=== PATIENT | female | born 1985 | race Caucasian/White ===

== ENCOUNTER 2016-05-15 15:26 | Emergency (ER) | payer MEDICAID ==
[~2016-05-15] VITALS: Wt 70.0 kg
[2016-05-15] MEDS ORDERED: IBUP-1542 PO (16:27)
--- NOTE | 2016-05-15 16:29 | ERD ---
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 She denies restricted range of motion or weakness. Her tetanus is not up-to-date. ROS All systems reviewed and are negative except as per history of present illness. Medications Home Meds Active Scripts Ibuprofen* (Motrin*) 600 Mg Tab, 600 MG PO Q6, #15 TAB Prov:WAYNE BHAKTA MD 05/15/16 Reported Medications [None] No Conflict Check 10/12/12 Allergies Allergies: Coded Allergies: No Known Allergy (Verified , 10/12/12) PMhx/Soc Medical and Surgical Hx: pt denies Medical Hx, pt denies Surgical Hx History of Surgery: No Anesthesia Reaction: No Hx Neurological Disorder: No Hx Respiratory Disorders: No Hx Cardiac Disorders: No Hx Psychiatric Problems: No Hx Miscellaneous Medical Probl: No Hx Alcohol Use: No Hx Substance Use: No Hx Tobacco Use: No Smoking Status: Never smoker Physical Exam Vitals Vital Signs Date Time Temp Pulse Resp B/P Pulse Ox O2 Delivery O2 Flow Rate FiO2 05/15/16 15:31 98.5 68 20 125/74 100 Physical Exam Const: [] Alert, [id number]. Head: Atraumatic Eyes: Normal Conjunctiva ENT: Normal External Ears, Nose and Mouth. Neck: Full range of motion..~ No meningismus. Resp: Clear to auscultation bilaterally Cardio: Regular rate and rhythm, no murmurs Abd: Soft, non tender, non distended. Normal bowel sounds Skin: No petechiae or rashes Back: No midline or flank tenderness Ext: No cyanosis, or edema. There is approximately 3.2 cm laceration on the dorsum of the left first MCP joint over the thumb. She has no appreciable tendon deficit or neurologic deficit. Neur: Awake and alert Psych: Normal Mood and Affect Results 24 hrs Current Medications Medications (Trade) Dose Ordered Sig/Piero Route PRN Reason Start Time Stop Time Status Last Admin Dose Admin Acetaminophen (Tylenol Tab) 650 mg ONCE ONCE PO 05/15/16 16:30 05/15/16 16:31 05/15/16 16:19 Lidocaine/ Epinephrine (Xylocaine 1%/ Epi (Mdv) 20 ml) 20 ml ONCE ONCE INFIL 05/15/16 16:30 05/15/16 16:31 Diphtheria/ Tetanus/Acell Pertussis (Adacel) 0.5 ml ONCE ONCE IM* 05/15/16 16:30 05/15/16 16:31 Procedures/[facility] Procedure note-left hand laceration was irrigated copiously with normal saline. 2 cc of lidocaine was used for local infiltration. 5 5-0 nylon sutures were used to reapproximate the wound and the patient tolerated procedure well. The wound was dressed. Patient was given a tetanus booster. Patient presents with a laceration without signs of tendon or neurologic deficit, foreign body, infection. She will be discharged home with instructions for wound check in 2 days and suture removal in 10 days. She should return sooner for fevers, redness, new or worsening symptoms Departure Diagnosis: Primary Impression: Laceration Condition: Stable Patient Instructions: Laceration, Hand Additional Instructions: 2 days wound check in 10 days suture removal. Recheck sooner for fevers, redness, new symptoms. WAYNE BHAKTA MD May 15, 2016 16:29
[2016-05-15] MEDS ORDERED: LIDOCAINE 1%/EPI (MDV) 20 ML INJ INFIL ONE (16:30)
[2016-05-15] MEDS ORDERED: ACETAMINOPHEN 325 MG TAB PO ONE (16:30)
[2016-05-15] MEDS ORDERED: DIPHTH/TET/ACEL PERTUSS (ADULT) 0.5 ML VIAL IM* ONE (16:30)
[2016-05-15 16:51] VITALS: BP 118/65; PULSE 76; RESP 19; TEMP 98.2
== END 2016-05-15 16:51 | disposition home or self-care (01) ==
LOC: FTE 15:26
DX: S61.412A Laceration without foreign body of left hand, initial encounter (principal); W26.0XXA Contact with knife, initial encounter; Y92.009 Unspecified place in unspecified non-institutional (private) residence as the place of occurrence of the external cause; Z23 Encounter for immunization
CPT/HCPCS: 12002; 90471; 90715; Z7502; Z7610

== ENCOUNTER 2016-09-11 14:58 | Emergency (ER) | payer MEDICAID ==
[~2016-09-11] VITALS: Ht 162.6 cm; Wt 76.5 kg
[~2016-09-11 14:58] MED LIST: IBUP-1542 PO
[2016-09-11 14:59] VITALS: Ht 162.6 cm; Wt 76.5 kg
[2016-09-11] MEDS ORDERED: NAPR-260 PO (15:26)
[2016-09-11] MEDS ORDERED: MED4DP PO (15:26)
--- NOTE | 2016-09-11 15:35 | ERD ---
ER Documentation Chief Complaint Date/Time DATE: 09/11/16 TIME: 15:32 Chief Complaint feels lump on throat HPI This patient is a 31-year-old female presenting to the emergency department after feeling a lump in her anterior cervical lymph node chain 2 weeks ago. She states the lump has stayed the same size. It is freely movable and associated with mild pain. She denies any sore throat. She also noticed a second lump right next to the one she already had which showed up yesterday. She has taken no medication for relief of symptoms. She denies fevers, chills, nausea, vomiting, diarrhea, or other symptoms currently. ROS All systems reviewed and are negative except as per history of present illness. Medications Home Meds Active Scripts Naproxen* (Naprosyn*) 500 Mg Tablet, 500 MG PO BID Y for PAIN AND/OR INFLAMMATION, #30 TAB Prov:BECKY ALVARENGA PA-C 09/11/16 Methylprednisolone* (Medrol* DOSE PACK) 4 Mg/Dose-Pack Tab.ds.pk, 4 MG PO . DIRECTED, #1 PACKET Prov:BECKY ALVARENGA PA-C 09/11/16 Ibuprofen* (Motrin*) 600 Mg Tab, 600 MG PO Q6, #15 TAB Prov:WAYNE BHAKTA MD 05/15/16 Reported Medications [None] No Conflict Check 10/12/12 Allergies Allergies: Coded Allergies: No Known Allergy (Verified , 10/12/12) PMhx/Soc History of Surgery: No Anesthesia Reaction: No Hx Neurological Disorder: No Hx Respiratory Disorders: No Hx Cardiac Disorders: No Hx Psychiatric Problems: No Hx Miscellaneous Medical Probl: No Hx Alcohol Use: No Hx Substance Use: No Hx Tobacco Use: No Physical Exam Vitals Vital Signs Date Time Temp Pulse Resp B/P Pulse Ox O2 Delivery O2 Flow Rate FiO2 09/11/16 14:59 98.9 91 18 139/79 99 Physical Exam Const: Well-appearing, nontoxic female in no acute distress. Head: Atraumatic Eyes: Normal Conjunctiva ENT: Normal External Ears, Nose and Mouth. Neck: Full range of motion..~ No meningismus. There is an approximate 1 mm x 1 mm freely movable lump to the anterior cervical chain on the right neck. Resp: Clear to auscultation bilaterally Cardio: Regular rate and rhythm, no murmurs Abd: Soft, non tender, non distended. Normal bowel sounds Skin: No petechiae or rashes Back: No midline or flank tenderness Ext: No cyanosis, or edema Neur: Awake and alert Psych: Normal Mood and Affect Procedures/MDM 31-year-old female presents for lump noted to the anterior cervical chain on the right neck. History and clinical examination is consistent with lymphedema. Findings were not significant. The remainder of the clinical examination was unremarkable. The patient is stable for outpatient management with a prescription for Medrol Dosepak and naproxen. The patient was advised to have close follow-up with a primary care physician. Strict ER return precautions were discussed. I low suspicion for thyroid storm, thyrotoxicosis, septicemia, or other emergent conditions. Departure Diagnosis: Primary Impression: Swollen lymph nodes Condition: Fair Patient Instructions: Lymphangitis Referrals: [facility] YOU HAVE RECEIVED A MEDICAL SCREENING EXAM AND THE RESULTS INDICATE THAT YOU DO NOT HAVE A CONDITION THAT REQUIRES URGENT TREATMENT IN THE EMERGENCY DEPARTMENT. FURTHER EVALUATION AND TREATMENT OF YOUR CONDITION CAN WAIT UNTIL YOU ARE SEEN IN YOUR DOCTORS OFFICE WITHIN THE NEXT 1-2 DAYS. IT IS YOUR RESPONSIBILITY TO MAKE AN APPOINTMENT FOR FOLOW-UP CARE. IF YOU HAVE A PRIMARY DOCTOR --you should call your primary doctor and schedule an appointment IF YOU DO NOT HAVE A PRIMARY DOCTOR YOU CAN CALL OUR PHYSICIAN REFERRAL HOTLINE AT IF YOU CAN NOT AFFORD TO SEE A PHYSICIAN YOU CAN CHOSE FROM THE FOLLOWING [facility] [address] [facility] [facility] [address] [facility] [facility] [address] [facility] [facility] [address] [facility]. [facility] [address] [facility]. [facility] [address] Additional Instructions: Follow up with your PCP within the next 1-3 days for a repeat evaluation and a possible referral to a specialist, if required. Return the the emergency department immediately if symptoms worsen or change. If you have any questions regarding medications, ask your pharmacist or us before you leave. If any adverse reactions, occur while taking your medications, discontinue the treatment and return to the emergency department immediately. If any new or worsening symptoms, uncontrolled fevers, or other unexplained symptoms occur, return to the emergency department immediately. Take your medications as directed, and complete the entire course of treatment. BECKY ALVARENGA PA-C Sep 11, 2016 15:35
== END 2016-09-11 15:46 | disposition home or self-care (01) ==
LOC: FTE 14:58
DX: R59.9 Enlarged lymph nodes, unspecified (principal)
CPT/HCPCS: 99283